=== PATIENT | male | born 1940 | race Caucasian/White ===

== ENCOUNTER 2018-03-13 08:56 | Day surgery (SDC) | payer MEDICARE ==
[~2018-03-13] VITALS: Ht 190.5 cm; Wt 88.6 kg
[~2018-03-13 08:56] MED LIST: AMIO200T PO; AMLO5TAB7 PO; APIX5TAB PO; ASPI-496 PO; CARV12.52 PO
[2018-03-13] MEDS ORDERED: SODIUM CHLORIDE 0.9% 500 ML IV PRN (09:20)
[2018-03-13] MEDS ORDERED: ASPI-621 PO (09:30)
[2018-03-13] MEDS ORDERED: PLEASE ENTER HEIGHT AND WEIGHT MC SCH (09:30)
[2018-03-13 09:45] VITALS: BP 133/98
[2018-03-13 09:53] LABS: ANION GAP 5 mmol/L (5-15); CALCIUM 8.7 mg/dL (8.5-10.1); CHLORIDE 112 mmol/L (98-107); CREATININE 1.21 mg/dL (0.7-1.3)
[2018-03-13] MEDS ORDERED: PROPOFOL 10 MG/ML, 20ML ONE (10:05)
[2018-03-13] MEDS ORDERED: SODIUM CHLORIDE FLUSH 10ML SYR IVF SCH (10:30)
== END 2018-03-13 11:35 | disposition home or self-care (01) ==
LOC: CACL 08:56
PROVIDERS: ATTEND Internal Medicine Cardiovascular Disease
DX: I48.0 Paroxysmal atrial fibrillation (principal); I10 Essential (primary) hypertension; Z79.82 Long term (current) use of aspirin; Z79.899 Other long term (current) drug therapy; Z72.89 Other problems related to lifestyle; Z95.0 Presence of cardiac pacemaker; I49.5 Sick sinus syndrome; G45.9 Transient cerebral ischemic attack, unspecified
CPT/HCPCS: 36415; 80048; 92960; 93005; J2704

== ENCOUNTER 2018-07-05 09:50 | Day surgery (SDC) | payer MEDICARE ==
[~2018-07-05] VITALS: Ht 190.5 cm; Wt 88.6 kg
[~2018-07-05 09:50] MED LIST changes: +AMLO-150 PO; -AMLO5TAB7 PO; +ASPI81TA45 PO
[2018-07-05 10:46] VITALS: BP 140/98
[2018-07-05 11:01] LABS: ANION GAP 6 mmol/L (5-15); CALCIUM 9.1 mg/dL (8.5-10.1); CHLORIDE 111 mmol/L (98-107); CREATININE 1.27 mg/dL (0.7-1.3)
[2018-07-05] MEDS ORDERED: MAGN400T36 PO-COUM (11:06)
[2018-07-05] MEDS ORDERED: CHOL100012 PO (11:06)
[2018-07-05] MEDS ORDERED: FENTANYL PF 100 MCG/2ML ONE (11:16)
[2018-07-05] MEDS ORDERED: MIDAZOLAM 1 MG/ML, 5ML ONE (11:16)
== END 2018-07-05 15:05 | disposition home or self-care (01) ==
LOC: CACL 09:50
PROVIDERS: ATTEND Internal Medicine Cardiovascular Disease
DX: I48.91 Unspecified atrial fibrillation (principal); I10 Essential (primary) hypertension; I49.5 Sick sinus syndrome; I42.9 Cardiomyopathy, unspecified; Z79.82 Long term (current) use of aspirin; Z79.899 Other long term (current) drug therapy; Z86.73 Personal history of transient ischemic attack (TIA), and cerebral infarction without residual deficits; Z95.0 Presence of cardiac pacemaker
CPT/HCPCS: 36415; 80048; 92960; J2250; J3010

== ENCOUNTER 2018-12-25 12:18 | Outpatient (CLI) | payer MEDICARE | END 2018-12-25 23:59 | disposition home or self-care (01) | LOC: CFH 12:18 | PROVIDERS: ATTEND Internal Medicine Cardiovascular Disease | DX: R06.02 Shortness of breath (principal); I48.0 Paroxysmal atrial fibrillation | CPT/HCPCS: 78452; 93017; A9502; J2785 ==

== ENCOUNTER 2020-05-05 10:52 | Day surgery (SDC) | payer MEDICARE ==
[~2020-05-05] VITALS: Ht 188 cm; Wt 88.6 kg
[~2020-05-05 10:52] MED LIST changes: +ACET325T26 PO; +CARV-39 PO; +CHOL100012 PO; +FLEC100T PO; +LIDOCAINE 2% VISCOUS 15 ML UDC ONE; +MAGN400T36 PO; +PROPOFOL 10 MG/ML, 20ML ONE; +SOTA120T14 PO; +SOTA80TA PO
[2020-05-05 11:58] VITALS: BP 134/84
[2020-05-05] MEDS ORDERED: SODIUM CHLORIDE 0.9% 1,000 ML IV ONE (12:00)
[2020-05-05] MEDS ORDERED: ASPI81TA45 PO (12:10)
[2020-05-05] MEDS ORDERED: SOTA120T26 PO (12:10)
[2020-05-05] MEDS ORDERED: FURO20TA3 PO (12:10)
[2020-05-05] MEDS ORDERED: SILD50TA PO (12:10)
[2020-05-05] MEDS ORDERED: RIVA20TA PO (12:12)
[2020-05-05 12:32] LABS: BASOPHILS % (AUTO) 1 % (0-1); EOSINOPHILS % (AUTO) 2 % (1-7); LYMPHOCYTES % (AUTO) 12 % (22-44); MEAN CORPUSCULAR HEMOGLOBIN 30.5 pg (27.5-34.5); MEAN CORPUSCULAR HGB CONC 33.4 g/dL (33.2-36.2); MEAN PLATELET VOLUME 8.4 fL (7.4-10.4); MONOCYTES % (AUTO) 6 % (2-9); NEUTROPHILS % (AUTO) 78 % (42-75); PLATELET COUNT 335 x10^3/uL (130-400); RED BLOOD COUNT 4.71 x10^6/uL (4.38-5.82); RED CELL DISTRIBUTION WIDTH 14.5 % (9.4-14.8)
[2020-05-05 12:34] LABS: MD NO
[2020-05-05 12:43] LABS: ANION GAP 5 mmol/L (5-15); CALCIUM 9.2 mg/dL (8.5-10.1); CHLORIDE 112 mmol/L (98-107)
[2020-05-05 12:44] LABS: CREATININE 1.42 mg/dL (0.7-1.3)
== END 2020-05-05 15:42 | disposition home or self-care (01) ==
LOC: CACL 10:52
PROVIDERS: ATTEND Internal Medicine Clinical Cardiac Electrophysiology
DX: I48.92 Unspecified atrial flutter (principal); I48.0 Paroxysmal atrial fibrillation; I08.1 Rheumatic disorders of both mitral and tricuspid valves; I47.2 Ventricular tachycardia; I10 Essential (primary) hypertension; Z20.828 Contact with and (suspected) exposure to other viral communicable diseases; Z79.01 Long term (current) use of anticoagulants; Z79.82 Long term (current) use of aspirin; Z79.899 Other long term (current) drug therapy; Z88.8 Allergy status to other drugs, medicaments and biological substances; Z95.0 Presence of cardiac pacemaker
CPT/HCPCS: 36415; 80048; 85025; 87635; 92960; 93312; 93321; 93325; J2704